=== PATIENT | male | born 1970 | race African-American/Black ===

== ENCOUNTER 2017-12-22 09:29 | Emergency (ER) | payer BC ==
[~2017-12-22] VITALS: Ht 165.1 cm; Wt 87.0 kg
[2017-12-22] MEDS ORDERED: IBUPROFEN 800MG TABLET PO ONE (11:30)
[2017-12-22 11:37] VITALS: BP 162/95
== END 2017-12-22 12:33 | disposition home or self-care (01) ==
LOC: ER 09:29
DX: S20.219A Contusion of unspecified front wall of thorax, initial encounter (principal); M62.838 Other muscle spasm; F17.200 Nicotine dependence, unspecified, uncomplicated; V09.9XXA Pedestrian injured in unspecified transport accident, initial encounter; Y93.89 Activity, other specified; Y99.8 Other external cause status; Y92.410 Unspecified street and highway as the place of occurrence of the external cause; Z88.0 Allergy status to penicillin
CPT/HCPCS: 99282